=== PATIENT | female | born 1960 | race Two or more races ===

== ENCOUNTER 2017-01-07 15:43 | Emergency (ER) | payer OTHER ==
[2017-01-07 15:48] VITALS: BP 150/92; PULSE 91; TEMP 98.1
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
== END 2017-01-07 19:10 | disposition home or self-care (01) ==
LOC: JERFT 15:43
DX: S00.33XA Contusion of nose, initial encounter (principal); S00.31XA Abrasion of nose, initial encounter; S00.212A Abrasion of left eyelid and periocular area, initial encounter; Y93.89 Activity, other specified; Y92.89 Other specified places as the place of occurrence of the external cause; Y99.8 Other external cause status; Y07.9 Unspecified perpetrator of maltreatment and neglect; Y00.XXXA Assault by blunt object, initial encounter
CPT/HCPCS: 70486-TC; 99281-25

== ENCOUNTER → 2019-02-19 | Outpatient (CLI) | payer OTHER | LOC: YHH 14:58 ==

== ENCOUNTER 2022-02-04 13:06 | Emergency (ER) | payer OTHER ==
[2022-02-04 13:17] VITALS: BP 147/69; PULSE 75; RESP 16; TEMP 98; BMI 28.5
[2022-02-04] MEDS ORDERED: LIDOCAINE 5% TOPICAL PATCH TP ONE (13:35)
[2022-02-04] MEDS ORDERED: LIDOCAINE 5% TOPICAL PATCH ONE (13:37)
[2022-02-04] MEDS ORDERED: LIDOCAINE PATCH REMOVAL MC SCH (22:00)
== END 2022-02-04 13:53 | disposition home or self-care (01) ==
LOC: JERFT 13:06
DX: M54.50 Low back pain, unspecified (principal)
CPT/HCPCS: 99283-25

== ENCOUNTER 2022-10-10 13:43 | Emergency (ER) | payer OTHER ==
[2022-10-10 13:50] VITALS: BP 143/69; PULSE 79; RESP 18; TEMP 98.4
== END 2022-10-10 15:33 | disposition home or self-care (01) ==
LOC: JERFT 13:43 → JER 13:43 → JERFT 15:33
DX: M25.561 Pain in right knee (principal); M25.661 Stiffness of right knee, not elsewhere classified; M25.551 Pain in right hip; S80.911A Unspecified superficial injury of right knee, initial encounter; S80.912A Unspecified superficial injury of left knee, initial encounter; W10.8XXA Fall (on) (from) other stairs and steps, initial encounter; Y93.01 Activity, walking, marching and hiking; Y92.038 Other place in apartment as the place of occurrence of the external cause
CPT/HCPCS: 71101-TC-RT-FY; 73560-TC-LT-FY; 73560-TC-RT-FY; 99284-25

== ENCOUNTER 2023-05-23 23:15 | Emergency (ER) | payer OTHER ==
[2023-05-23 23:24] VITALS: BMI 29.0
[2023-05-24 01:45] LABS: BASO % 0.5 % (0-2.0); EOS % 0.4 % (0-4.5); HEMOGLOBIN 11.3 GM/dL (10.7-15.3); LYMPH % 14.7 % (8-40); MCH 28.5 pg (25.7-33.7); MCHC 33.1 g/dl (32.0-36.0); MEAN CELL VOLUME 86.2 fl (80-96); MONO % 7.9 % (3.8-10.2); NEUT % 76.5 % (42.8-82.8); PLATELET COUNT 52 10^3/uL (134-434); RBC 3.95 M/mm3 (3.60-5.2); RDW 15.5 % (11.6-15.6); WHITE BLOOD COUNT 5.2 K/mm3 (4.0-10.0)
[2023-05-24 01:52] LABS: INR 1.34 (0.83-1.09); PROTHROMBIN TIME (PATIENT) 15.5 SEC (9.7-13.0)
[2023-05-24 01:54] LABS: VENOUS BASE EXCESS 1.6 mmol/L (-2-2); VENOUS O2 SATURATION 40.3 % (70-80); VENOUS PCO2 43.9 mmHg (38-52); VENOUS PH 7.402 (7.310-7.410)
[2023-05-24 01:55] LABS: ACTIVATED PTT 32.1 SECONDS (25.2-36.5)
[2023-05-24 02:16] LABS: CHLORIDE 107 mmol/L (98-107); POTASSIUM 3.9 mmol/L (3.5-5.1); SODIUM 138 mmol/L (136-145)
[2023-05-24 02:17] LABS: ALBUMIN 3.3 g/dl (3.4-5.0); ANION GAP 8 mmol/L (4-13); CALCIUM 8.4 mg/dL (8.5-10.1); CO2 24 mmol/L (21-32)
[2023-05-24 02:19] LABS: BLOOD UREA NITROGEN 8.1 mg/dL (7-18); GLUCOSE,RANDOM 121 mg/dL (74-106)
[2023-05-24 02:21] LABS: SGPT/ALT 26 U/L (13-61)
[2023-05-24 02:22] LABS: CREATININE 0.9 mg/dL (0.55-1.3); SGOT/AST 42 U/L (15-37)
[2023-05-24 02:23] LABS: ALK PHOS 105 U/L (45-117); BILIRUBIN,TOTAL 1.2 mg/dL (0.2-1); TOT PROT 8.2 g/dl (6.4-8.2)
[2023-05-24 02:31] VITALS: BP 178/85; PULSE 97; RESP 18; TEMP 98.7
[2023-05-24 03:12] LABS: EPI CELLS 10 /uL (0-25.1); HYALINE CASTS 0 /uL (0-3.1); URINE APPEARANCE CLEAR; URINE BACTERIA 110 /uL (0-1359); URINE BILIRUBIN NEGATIVE (NEGATIVE); URINE COLOR YELLOW; URINE GLUCOSE (UA) NEGATIVE (NEGATIVE); URINE KETONE NEGATIVE (NEGATIVE); URINE LEUK ESTERASE NEGATIVE (NEGATIVE); URINE NITRITE NEGATIVE (NEGATIVE); URINE PROTEIN NEGATIVE (NEGATIVE); URINE WBC 38 /uL (0-25.8)
[2023-05-24 06:32] LABS: URINE RBC 62.1 /uL (0-23.9); YEAST NONE SEEN (NEGATIVE)
== END 2023-05-24 03:37 | disposition home or self-care (01) ==
LOC: JER 23:15
DX: I10 Essential (primary) hypertension (principal); R00.0 Tachycardia, unspecified; Z20.822 Contact with and (suspected) exposure to COVID-19
CPT/HCPCS: 0241U-QW; 36415; 71045-TC-FY; 80053; 81003; 82550; 82553; 82803; 83605; 84484; 85025; 85610; 85730; 87040; 87086; 93005; 93010; 99285-25

== ENCOUNTER 2023-07-16 13:56 | Emergency (ER) | payer OTHER ==
[2023-07-16 14:19] VITALS: BP 145/58; PULSE 76; RESP 18; TEMP 98.3; BMI 28.5
[2023-07-16] MEDS ORDERED: LIDOCAINE 5% TOPICAL PATCH TP ONE (14:57)
[2023-07-16] MEDS ORDERED: SODIUM CHLORIDE 0.9% 500 ML INFUS.BAG IV ONE (15:50)
[2023-07-16 15:57] LABS: PH,URINE 7.5 (5.0-8.0); URINE APPEARANCE CLEAR; URINE BILIRUBIN NEGATIVE (NEGATIVE); URINE COLOR YELLOW; URINE GLUCOSE (UA) NEGATIVE (NEGATIVE); URINE KETONE NEGATIVE (NEGATIVE); URINE LEUK ESTERASE NEGATIVE (NEGATIVE); URINE NITRITE NEGATIVE (NEGATIVE); URINE PROTEIN NEGATIVE (NEGATIVE)
[2023-07-16] MEDS ORDERED: LIDOCAINE 4% PATCH TP ONE (16:34)
[2023-07-16 16:59] LABS: EPI CELLS 4.1 /uL (0-25.1); HYALINE CASTS 0.29 /uL (0-3.1); URINE BACTERIA 9.3 /uL (0-1359); URINE RBC 14.1 /uL (0-23.9); URINE WBC 2.6 /uL (0-25.8)
[2023-07-16 17:18] LABS: BASO % 0.7 % (0-2.0); HEMATOCRIT 33.4 % (32.4-45.2); HEMOGLOBIN 10.9 GM/dL (10.7-15.3); LYMPH % 23.7 % (8-40); MCH 28.8 pg (25.7-33.7); MCHC 32.8 g/dl (32.0-36.0); MEAN CELL VOLUME 87.9 fl (80-96); MEAN PLT VOLUME 8.1 fl (7.5-11.1); MONO % 14.4 % (3.8-10.2); NEUT % 59.2 % (42.8-82.8); PLATELET COUNT 67 10^3/uL (134-434); RDW 16.4 % (11.6-15.6)
[2023-07-16 17:31] LABS: CALCIUM 8.7 mg/dL (8.5-10.1)
[2023-07-16 17:32] LABS: ALBUMIN 3.2 g/dl (3.4-5.0); BLOOD UREA NITROGEN 4.9 mg/dL (7-18)
[2023-07-16 17:35] LABS: CREATININE 0.8 mg/dL (0.55-1.3)
[2023-07-16 17:36] LABS: BILIRUBIN,TOTAL 1.2 mg/dL (0.2-1)
[2023-07-16 17:37] LABS: TOT PROT 8.2 g/dl (6.4-8.2)
[2023-07-16] MEDS ORDERED: LIDOCAINE PATCH REMOVAL MC SCH (22:00)
== END 2023-07-16 20:38 | disposition home or self-care (01) ==
LOC: JER 13:56
DX: R10.9 Unspecified abdominal pain (principal); M54.9 Dorsalgia, unspecified
CPT/HCPCS: 36415; 74176-TC; 80053; 81003; 83605; 85025; 87077; 87086; 99284-25

== ENCOUNTER 2024-06-09 23:23 | Inpatient (IN) | payer OTHER ==
[2024-06-09] MEDS ORDERED: PANTOPRAZOLE SODIUM 40 MG VIAL ONE ×2 (23:46)
[2024-06-10] MEDS ORDERED: ONDANSETRON 4 MG/2 ML VIAL ONE (00:56)
[2024-06-10] MEDS ORDERED: OCTREOTIDE ACETATE 100 MCG/1 ML ONE (00:57)
[2024-06-10 01:08] LABS: BASO % 2.1 % (0-2.0); EOS % 1.7 % (0-4.5); HEMATOCRIT 26.9 % (32.4-45.2); HEMOGLOBIN 8.4 GM/dL (10.7-15.3); LYMPH % 21.4 % (8-40); MCH 27.3 pg (25.7-33.7); MCHC 31.4 g/dl (32.0-36.0); MEAN PLT VOLUME 8.4 fl (7.5-11.1); MONO % 7.8 % (3.8-10.2); PLATELET COUNT 92 10^3/uL (134-434); RBC 3.09 M/mm3 (3.60-5.2); RDW 16.2 % (11.6-15.6); WHITE BLOOD COUNT 4.9 K/mm3 (4.0-10.0)
[2024-06-10] MEDS: ONDANSETRON 4 MG/2 ML VIAL IVPUSH ONE (01:09)
[2024-06-10] MEDS: PANTOPRAZOLE SODIUM 40 MG VIAL IVPUSH ONE (01:20)
[2024-06-10] MEDS: OCTREOTIDE ACETATE 50 MCG/1 ML - 1 ML VIAL IVPUSH ONE (01:20)
[2024-06-10 01:23] LABS: POTASSIUM 3.9 mmol/L (3.5-5.1)
[2024-06-10 01:25] LABS: BLOOD UREA NITROGEN 14.2 mg/dL (7-18); CALCIUM 8.4 mg/dL (8.5-10.1)
[2024-06-10 01:26] LABS: ALBUMIN 2.8 g/dl (3.4-5.0); MAGNESIUM 1.9 mg/dL (1.8-2.4)
[2024-06-10 01:28] LABS: CREATININE 0.7 mg/dL (0.55-1.3)
[2024-06-10 01:30] LABS: BILIRUBIN,TOTAL 1.4 mg/dL (0.2-1); INR 1.33 (0.83-1.09); PROTHROMBIN TIME (PATIENT) 15.2 SEC (9.7-13.0); TOT PROT 6.8 g/dl (6.4-8.2)
[2024-06-10] MEDS ORDERED: SODIUM CHLORIDE 1,000 ML IV SCH (03:45)
[2024-06-10 05:23] LABS: BASO % 0.8 % (0-2.0); EOS % 1.5 % (0-4.5); HEMATOCRIT 28.5 % (32.4-45.2); HEMOGLOBIN 9.2 GM/dL (10.7-15.3); LYMPH % 30.9 % (8-40); MCH 27.8 pg (25.7-33.7); MCHC 32.3 g/dl (32.0-36.0); MEAN PLT VOLUME 8.2 fl (7.5-11.1); MONO % 7.1 % (3.8-10.2); NEUT % 59.7 % (42.8-82.8); PLATELET COUNT 119 10^3/uL (134-434); RBC 3.31 M/mm3 (3.60-5.2); RDW 16.4 % (11.6-15.6); WHITE BLOOD COUNT 6.8 K/mm3 (4.0-10.0)
[2024-06-10] MEDS: OCTREOTIDE ACETATE 200 MCG, OCTREOTIDE ACETATE 1,000 MCG in DEXTROSE 5%-WATER - 496 ML IVPB SCH (06:20)
[2024-06-10] MEDS: SODIUM CHLORIDE 1,000 ML IV SCH (06:21)
[2024-06-10 06:31] LABS: COCAINE, UR NEGATIVE (NEGATIVE); METHADONE, UR NEGATIVE (NEGATIVE); OPIATES, URI NEGATIVE (NEGATIVE); URINE AMPHETAMINES NEGATIVE (NEGATIVE); URINE BARBITURATES NEGATIVE (NEGATIVE); URINE BENZODIAZEPINES NEGATIVE (NEGATIVE)
[2024-06-10 06:41] LABS: PHENCYCLIDINE,URINE NEGATIVE (NEGATIVE)
[2024-06-10] MEDS: INSULIN ASPART SLIDING SCALE (NOVOLOG) 1 VIAL SQ SCH (06:45)
[2024-06-10 07:13] LABS: BASO % 0.8 % (0-2.0); EOS % 1.4 % (0-4.5); HEMATOCRIT 27.7 % (32.4-45.2); HEMOGLOBIN 9.2 GM/dL (10.7-15.3); LYMPH % 29.2 % (8-40); MCH 28.2 pg (25.7-33.7); MCHC 33.1 g/dl (32.0-36.0); MEAN CELL VOLUME 85.2 fl (80-96); MEAN PLT VOLUME 8.4 fl (7.5-11.1); NEUT % 59.6 % (42.8-82.8); PLATELET COUNT 105 10^3/uL (134-434); RBC 3.25 M/mm3 (3.60-5.2); RDW 16.3 % (11.6-15.6); WHITE BLOOD COUNT 6.4 K/mm3 (4.0-10.0)
[2024-06-10 07:31] LABS: POTASSIUM 4.4 mmol/L (3.5-5.1)
[2024-06-10 07:39] LABS: BLOOD UREA NITROGEN 16.8 mg/dL (7-18); CALCIUM 8.4 mg/dL (8.5-10.1)
[2024-06-10 07:40] LABS: ALBUMIN 3.1 g/dl (3.4-5.0)
[2024-06-10 07:43] LABS: CREATININE 0.7 mg/dL (0.55-1.3)
[2024-06-10 07:44] LABS: BILIRUBIN,TOTAL 1.6 mg/dL (0.2-1)
[2024-06-10 07:45] LABS: TOT PROT 7.1 g/dl (6.4-8.2)
[2024-06-10] MEDS ORDERED: BICTEGRAV/EMTRICIT/TENOFOV (BIKTARVY) 50-200-25 MG TABLET PO SCH (08:00)
[2024-06-10] MEDS: SODIUM CHLORIDE 1,000 ML IV STA (09:47)
[2024-06-10] MEDS: PANTOPRAZOLE SODIUM 40 MG VIAL IVPUSH SCH (09:47)
[2024-06-10] MEDS: LACTATED RINGERS SOLUTION 1,000 ML IV SCH (13:30)
[2024-06-10] MEDS: BICTEGRAV/EMTRICIT/TENOFOV (BIKTARVY) 50-200-25 MG TABLET PO SCH (17:23)
[2024-06-11 07:39] LABS: HEMATOCRIT 21.4 % (32.4-45.2); MCH 27.2 pg (25.7-33.7); MCHC 31.6 g/dl (32.0-36.0); MEAN CELL VOLUME 86.3 fl (80-96); MEAN PLT VOLUME 7.6 fl (7.5-11.1); PLATELET COUNT 51 10^3/uL (134-434); RBC 2.48 M/mm3 (3.60-5.2); RDW 16.1 % (11.6-15.6); WHITE BLOOD COUNT 2.1 K/mm3 (4.0-10.0)
[2024-06-11 07:47] LABS: BASO % 0.7 % (0-2.0); HEMATOCRIT 21.1 % (32.4-45.2); LYMPH % 32.1 % (8-40); MCH 27.8 pg (25.7-33.7); MCHC 32.4 g/dl (32.0-36.0); MEAN CELL VOLUME 86.1 fl (80-96); MONO % 8.1 % (3.8-10.2); NEUT % 57.1 % (42.8-82.8); PLATELET COUNT 51 10^3/uL (134-434); RBC 2.45 M/mm3 (3.60-5.2); RDW 15.7 % (11.6-15.6); WHITE BLOOD COUNT 2.1 K/mm3 (4.0-10.0)
[2024-06-11 07:50] LABS: HEMOGLOBIN 6.8 GM/dL (10.7-15.3)
[2024-06-11 08:02] LABS: HEMOGLOBIN 6.8 GM/dL (10.7-15.3)
[2024-06-11 08:08] LABS: POTASSIUM 3.7 mmol/L (3.5-5.1)
[2024-06-11 08:11] LABS: ALBUMIN 2.6 g/dl (3.4-5.0); BLOOD UREA NITROGEN 13.8 mg/dL (7-18); CALCIUM 7.8 mg/dL (8.5-10.1); MAGNESIUM 1.9 mg/dL (1.8-2.4)
[2024-06-11 08:14] LABS: CREATININE 0.8 mg/dL (0.55-1.3)
[2024-06-11] MEDS ORDERED: MUPIROCIN 2% TOPICAL OINTMENT FOR DECOLONIZATION NS SCH (13:45)
[2024-06-11 13:49] VITALS: BMI 27.3
[2024-06-11] MEDS: OCTREOTIDE ACETATE 200 MCG, OCTREOTIDE ACETATE 1,000 MCG in DEXTROSE 5%-WATER - 496 ML IVPB SCH ×2 (14:02→19:30)
[2024-06-11] MEDS: PEG 3350/NA SULF BICARB CL/KCL 4000 ML SOLN.RECON PO ONE (16:56)
[2024-06-11] MEDS: LACTATED RINGERS SOLUTION 1,000 ML IV SCH (19:30)
[2024-06-11 19:54] LABS: HEMATOCRIT 23.1 % (32.4-45.2); HEMOGLOBIN 7.5 GM/dL (10.7-15.3); MCH 27.7 pg (25.7-33.7); MCHC 32.4 g/dl (32.0-36.0); MEAN CELL VOLUME 85.7 fl (80-96); MEAN PLT VOLUME 7.6 fl (7.5-11.1); PLATELET COUNT 49 10^3/uL (134-434); RDW 15.6 % (11.6-15.6); WHITE BLOOD COUNT 2.5 K/mm3 (4.0-10.0)
[2024-06-11 20:01] LABS: INR 1.22 (0.83-1.09)
[2024-06-11] MEDS ORDERED: CHLORHEXIDINE GLUCONATE 4% CLEANSER FOR DECOLONIZATION TP SCH (22:00)
[2024-06-11] MEDS: CHLORHEXIDINE GLUCONATE 4% CLEANSER FOR DECOLONIZATION TP SCH (22:15)
[2024-06-11] MEDS: MUPIROCIN 2% TOPICAL OINTMENT FOR DECOLONIZATION NS SCH (22:15)
[2024-06-11] MEDS: PANTOPRAZOLE SODIUM 40 MG VIAL IVPUSH SCH (22:15)
[2024-06-11] MEDS: CEFTRIAXONE 1 G/50 ML PREMIX 50 ML IVPB SCH (22:16)
[2024-06-12] MEDS: INSULIN ASPART SLIDING SCALE (NOVOLOG) 1 VIAL SQ SCH (06:49)
[2024-06-12 07:57] LABS: POTASSIUM 3.4 mmol/L (3.5-5.1)
[2024-06-12 07:59] LABS: CALCIUM 7.8 mg/dL (8.5-10.1)
[2024-06-12 08:00] LABS: ALBUMIN 2.7 g/dl (3.4-5.0); BLOOD UREA NITROGEN 7.1 mg/dL (7-18)
[2024-06-12 08:03] LABS: CREATININE 0.7 mg/dL (0.55-1.3)
[2024-06-12 08:04] LABS: BILIRUBIN,TOTAL 1.2 mg/dL (0.2-1)
[2024-06-12 08:05] LABS: TOT PROT 5.9 g/dl (6.4-8.2)
[2024-06-12] MEDS: BICTEGRAV/EMTRICIT/TENOFOV (BIKTARVY) 50-200-25 MG TABLET PO SCH (10:15)
[2024-06-12 11:02] LABS: HEMATOCRIT 28.2 % (32.4-45.2); HEMOGLOBIN 9.4 GM/dL (10.7-15.3); MCH 28.9 pg (25.7-33.7); MCHC 33.3 g/dl (32.0-36.0); MEAN CELL VOLUME 86.9 fl (80-96); MEAN PLT VOLUME 7.6 fl (7.5-11.1); PLATELET COUNT 51 10^3/uL (134-434); RBC 3.25 M/mm3 (3.60-5.2); RDW 15.2 % (11.6-15.6)
[2024-06-12 11:06] LABS: WHITE BLOOD COUNT 1.8 K/mm3 (4.0-10.0)
[2024-06-12] MEDS ORDERED: ALBUTEROL SO4 0.083% IH SOL 2.5 MG/3 ML VIAL.NEB. NEB PRN (11:27)
[2024-06-12] MEDS ORDERED: POTASSIUM CHLORIDE 40 MEQ in LACTATED RINGERS SOLUTION 1,000 ML IV ONE (11:30)
[2024-06-12] MEDS: KCL 10 MEQ IVPB 10 MEQ/100 ML INFUS.BAG IVPB SCH (12:04)
[2024-06-12] MEDS: LOSARTAN POTASSIUM 50 MG TABLET PO SCH (14:29)
[2024-06-12 15:38] LABS: PHOSPHOROUS 2.4 mg/dL (2.5-4.9)
[2024-06-12 18:23] LABS: HEMATOCRIT 28.3 % (32.4-45.2); HEMOGLOBIN 9.4 GM/dL (10.7-15.3); MCH 28.8 pg (25.7-33.7); MCHC 33.1 g/dl (32.0-36.0); MEAN CELL VOLUME 87.3 fl (80-96); MEAN PLT VOLUME 7.9 fl (7.5-11.1); PLATELET COUNT 45 10^3/uL (134-434); RBC 3.24 M/mm3 (3.60-5.2); RDW 15.1 % (11.6-15.6)
[2024-06-12 18:28] LABS: WHITE BLOOD COUNT 1.7 K/mm3 (4.0-10.0)
[2024-06-12] MEDS: ATORVASTATIN CA 10 MG TABLET (FP) PO SCH (21:29)
[2024-06-13 07:05] LABS: HEMATOCRIT 26.4 % (32.4-45.2); HEMOGLOBIN 8.8 GM/dL (10.7-15.3); MCH 29.1 pg (25.7-33.7); MCHC 33.2 g/dl (32.0-36.0); MEAN CELL VOLUME 87.4 fl (80-96); MEAN PLT VOLUME 7.6 fl (7.5-11.1); PLATELET COUNT 38 10^3/uL (134-434); RBC 3.02 M/mm3 (3.60-5.2); RDW 15.4 % (11.6-15.6)
[2024-06-13 07:07] LABS: HEMATOCRIT 26.3 % (32.4-45.2); HEMOGLOBIN 8.8 GM/dL (10.7-15.3); MCH 29.3 pg (25.7-33.7); MCHC 33.4 g/dl (32.0-36.0); MEAN CELL VOLUME 87.5 fl (80-96); MEAN PLT VOLUME 7.9 fl (7.5-11.1); PLATELET COUNT 38 10^3/uL (134-434); RBC 3.01 M/mm3 (3.60-5.2)
[2024-06-13 07:16] LABS: WHITE BLOOD COUNT 1.5 K/mm3 (4.0-10.0)
[2024-06-13 07:17] LABS: WHITE BLOOD COUNT 1.5 K/mm3 (4.0-10.0)
[2024-06-13 07:21] LABS: MAGNESIUM 1.9 mg/dL (1.8-2.4)
[2024-06-13 07:24] LABS: PHOSPHOROUS 2.2 mg/dL (2.5-4.9)
[2024-06-13 07:26] LABS: POTASSIUM 3.2 mmol/L (3.5-5.1)
[2024-06-13 07:30] LABS: CALCIUM 7.8 mg/dL (8.5-10.1)
[2024-06-13 07:31] LABS: ALBUMIN 2.6 g/dl (3.4-5.0); BLOOD UREA NITROGEN 4.9 mg/dL (7-18)
[2024-06-13 07:33] LABS: CREATININE 0.7 mg/dL (0.55-1.3)
[2024-06-13 07:35] LABS: TOT PROT 5.9 g/dl (6.4-8.2)
[2024-06-13 07:38] LABS: BILIRUBIN,TOTAL 1.1 mg/dL (0.2-1)
[2024-06-13] MEDS: MAGNESIUM OXIDE 400 MG TABLET (FP) PO ONE (08:37)
[2024-06-13] MEDS: LIDOCAINE 5% TOPICAL PATCH TP SCH (10:37)
[2024-06-13] MEDS: LORATADINE 10 MG TABLET PO SCH (10:37)
[2024-06-13] MEDS: POTASSIUM CHLORIDE ORAL LIQUID 20 MEQ/15 ML PO SCH (10:37)
[2024-06-13 13:01] LABS: HEMATOCRIT 29.1 % (32.4-45.2); HEMOGLOBIN 9.6 GM/dL (10.7-15.3); MCH 28.8 pg (25.7-33.7); MCHC 32.8 g/dl (32.0-36.0); MEAN CELL VOLUME 87.8 fl (80-96); MEAN PLT VOLUME 7.6 fl (7.5-11.1); PLATELET COUNT 39 10^3/uL (134-434); RBC 3.32 M/mm3 (3.60-5.2); RDW 15.2 % (11.6-15.6)
[2024-06-13 13:06] LABS: WHITE BLOOD COUNT 1.8 K/mm3 (4.0-10.0)
[2024-06-13] MEDS: OCTREOTIDE ACETATE 200 MCG, OCTREOTIDE ACETATE 1,000 MCG in DEXTROSE 5%-WATER - 496 ML IVPB SCH (19:02)
[2024-06-13] MEDS: oxyCODONE HCL 5 MG TABLET PO PRN (19:03)
[2024-06-13] MEDS: ACETAMINOPHEN 325 MG TABLET (FP) PO PRN (19:06)
[2024-06-13] MEDS: LIDOCAINE PATCH REMOVAL MC SCH (21:18)
[2024-06-14 07:42] LABS: BASO % 0.6 % (0-2.0); EOS % 3.4 % (0-4.5); HEMATOCRIT 27.3 % (32.4-45.2); LYMPH % 28.6 % (8-40); MCH 29.2 pg (25.7-33.7); MCHC 33.2 g/dl (32.0-36.0); MEAN PLT VOLUME 8.1 fl (7.5-11.1); MONO % 10.7 % (3.8-10.2); NEUT % 56.7 % (42.8-82.8); RDW 15.5 % (11.6-15.6)
[2024-06-14 07:52] LABS: ALBUMIN 2.6 g/dl (3.4-5.0); CREATININE 0.7 mg/dL (0.55-1.3); MAGNESIUM 2.1 mg/dL (1.8-2.4)
[2024-06-14 07:53] LABS: BLOOD UREA NITROGEN 4.8 mg/dL (7-18)
[2024-06-14 07:54] LABS: BILIRUBIN,TOTAL 0.9 mg/dL (0.2-1)
[2024-06-14 07:58] LABS: WHITE BLOOD COUNT 1.5 K/mm3 (4.0-10.0)
[2024-06-14 07:59] LABS: PLATELET COUNT 33 10^3/uL (134-434)
[2024-06-14 09:05] LABS: ANISOCYTOSIS 0; MACROCYTOSIS 0
[2024-06-15 07:01] LABS: BASO % 0.5 % (0-2.0); EOS % 2.4 % (0-4.5); HEMATOCRIT 30.5 % (32.4-45.2); LYMPH % 30.2 % (8-40); MCH 29.3 pg (25.7-33.7); MCHC 32.9 g/dl (32.0-36.0); MEAN CELL VOLUME 89.3 fl (80-96); MEAN PLT VOLUME 8.3 fl (7.5-11.1); MONO % 8.8 % (3.8-10.2); NEUT % 58.1 % (42.8-82.8); PLATELET COUNT 38 10^3/uL (134-434); RBC 3.41 M/mm3 (3.60-5.2); RDW 15.4 % (11.6-15.6)
[2024-06-15 07:17] LABS: ALBUMIN 2.9 g/dl (3.4-5.0); BLOOD UREA NITROGEN 5.5 mg/dL (7-18)
[2024-06-15 07:20] LABS: CREATININE 0.8 mg/dL (0.55-1.3)
[2024-06-15 07:22] LABS: TOT PROT 6.6 g/dl (6.4-8.2)
[2024-06-15] MEDS ORDERED: LIDOCAINE PATCH REMOVAL MC SCH (09:35)
[2024-06-15] MEDS ORDERED: ALBUTEROL SO4 0.083% IH SOL 2.5 MG/3 ML VIAL.NEB. NEB PRN (09:35)
[2024-06-15] MEDS: INSULIN ASPART SLIDING SCALE (NOVOLOG) 1 VIAL SQ SCH (10:49)
[2024-06-15] MEDS: LIDOCAINE 5% TOPICAL PATCH TP SCH (10:50)
[2024-06-15] MEDS: LORATADINE 10 MG TABLET PO SCH (10:50)
[2024-06-15] MEDS: LOSARTAN POTASSIUM 50 MG TABLET PO SCH (10:50)
[2024-06-15] MEDS: CEFTRIAXONE 1 G/50 ML PREMIX 50 ML IVPB SCH (10:50)
[2024-06-15] MEDS: PANTOPRAZOLE SODIUM 40 MG VIAL IVPUSH SCH (10:58)
[2024-06-15] MEDS: CARVEDILOL 3.125 MG TABLET (FP) PO SCH (12:15)
[2024-06-15] MEDS: LOSARTAN POTASSIUM 50 MG TABLET PO ONE (14:13)
[2024-06-15] MEDS: amLODIPine BESYLATE 10 MG TABLET (FP) PO SCH (15:53)
[2024-06-15] MEDS: oxyCODONE HCL 5 MG TABLET PO PRN (19:31)
[2024-06-15] MEDS: ACETAMINOPHEN 325 MG TABLET (FP) PO PRN (20:10)
[2024-06-15] MEDS: LIDOCAINE PATCH REMOVAL MC SCH (21:06)
[2024-06-15] MEDS: PANTOPRAZOLE 40 MG TABLET PO SCH (21:08)
[2024-06-15] MEDS: ATORVASTATIN CA 10 MG TABLET (FP) PO SCH (21:08)
[2024-06-16] MEDS: BICTEGRAV/EMTRICIT/TENOFOV (BIKTARVY) 50-200-25 MG TABLET PO SCH (08:48)
[2024-06-16] MEDS ORDERED: CARVEDILOL 3.125 MG TABLET (FP) PO SCH (10:00)
[2024-06-16] MEDS: LOSARTAN POTASSIUM 50 MG TABLET PO SCH (10:45)
[2024-06-16 13:33] VITALS: RESP 18
[2024-06-16 13:41] LABS: BASO % 0.6 % (0-2.0); EOS % 2.1 % (0-4.5); HEMATOCRIT 30.8 % (32.4-45.2); HEMOGLOBIN 10.5 GM/dL (10.7-15.3); LYMPH % 22.6 % (8-40); MCH 29.8 pg (25.7-33.7); MEAN CELL VOLUME 87.5 fl (80-96); MEAN PLT VOLUME 8.9 fl (7.5-11.1); MONO % 8.8 % (3.8-10.2); NEUT % 65.9 % (42.8-82.8); PLATELET COUNT 41 10^3/uL (134-434); RBC 3.52 M/mm3 (3.60-5.2); RDW 15.8 % (11.6-15.6); WHITE BLOOD COUNT 2.6 K/mm3 (4.0-10.0)
[2024-06-16 13:57] LABS: POTASSIUM 3.7 mmol/L (3.5-5.1)
[2024-06-16 13:59] LABS: BLOOD UREA NITROGEN 8.4 mg/dL (7-18); CALCIUM 8.5 mg/dL (8.5-10.1)
[2024-06-16 14:08] VITALS: BP 179/71; PULSE 74
[2024-06-16 14:13] LABS: CREATININE 0.8 mg/dL (0.55-1.3)
[2024-06-16 14:37] VITALS: TEMP 98.9
== END 2024-06-16 15:38 | disposition home or self-care (01) | DRG 890 ==
LOC: JER 23:23 → JERBED 06-10 01:46 → J4W 06-10 06:48 → JICU 06-11 16:14 → J7W 06-15 22:40
PROVIDERS: ADMIT Internal Medicine; ATTEND Registered Nurse
PROC: 0DB68ZX Excision of Stomach, Via Natural or Artificial Opening Endoscopic, Diagnostic (ICD-10-PCS; 2024-06-10)
PROC: 05HF33Z Insertion of Infusion Device into Left Cephalic Vein, Percutaneous Approach (ICD-10-PCS; principal; 2024-06-11)
PROC: B54NZZA Ultrasonography of Left Upper Extremity Veins, Guidance (ICD-10-PCS; 2024-06-11)
PROC: 30233N1 Transfusion of Nonautologous Red Blood Cells into Peripheral Vein, Percutaneous Approach (ICD-10-PCS; 2024-06-11)
PROC: 30233R1 Transfusion of Nonautologous Platelets into Peripheral Vein, Percutaneous Approach (ICD-10-PCS; 2024-06-12)
PROC: 0DJD8ZZ Inspection of Lower Intestinal Tract, Via Natural or Artificial Opening Endoscopic (ICD-10-PCS; 2024-06-12)
DX: C83.398 Diffuse large B-cell lymphoma of other extranodal and solid organ sites (principal); K31.9 Disease of stomach and duodenum, unspecified; B20 Human immunodeficiency virus [HIV] disease; D69.3 Immune thrombocytopenic purpura; I85.00 Esophageal varices without bleeding; D64.9 Anemia, unspecified; K74.60 Unspecified cirrhosis of liver; I16.0 Hypertensive urgency; E11.9 Type 2 diabetes mellitus without complications; K92.0 Hematemesis; B02.29 Other postherpetic nervous system involvement; M48.00 Spinal stenosis, site unspecified; F32.A Depression, unspecified; G89.29 Other chronic pain; K62.5 Hemorrhage of anus and rectum; K64.8 Other hemorrhoids; E78.5 Hyperlipidemia, unspecified; R18.8 Other ascites; K80.20 Calculus of gallbladder without cholecystitis without obstruction; C16.9 Malignant neoplasm of stomach, unspecified
CPT/HCPCS: 36415; 36430; 36511; 36516; 71045-TC-FY; 74150-TC; 74177-TC; 80053; 80061; 80307; 82105; 82272; 82378; 82962; 83605; 83690; 83735; 84100; 84484; 85025; 85027; 85610; 85730; 86301; 86359; 86360; 86480; 86850; 86900; 86901; 86922; 87481; 87496; 87536; 87635; 88305-TC; 88341-TC; 88342-TC; 93005; 93010; 94760; 99285-25; G0463-25; P9037; P9038; P9058; Q9967